=== PATIENT | female | born 1960 | race Caucasian/White ===

== ENCOUNTER → 2020-03-07 | Outpatient (CLI) | payer MEDICARE | END | disposition home or self-care (01) | LOC: RAH 07:55 | PROVIDERS: ATTEND Orthopaedic Surgery | DX: M16.0 Bilateral primary osteoarthritis of hip (principal); M87.00 Idiopathic aseptic necrosis of unspecified bone; M25.552 Pain in left hip; M25.551 Pain in right hip | CPT/HCPCS: 72195 ==

== ENCOUNTER → 2024-06-12 | Outpatient (CLI) | payer MEDICARE ==
--- NOTE | 2024-06-12 09:34 | HMCIMG ---
UPPER GI TRACT, WO KUB REASON: HEARTBURN; DIAPHRAGMATIC HERNIA W/O OBSTRUCTION OR GANGRENE. COMPARISON: None TECHNIQUE: Biphasic upper GI series study was performed. FINDINGS: There is no obstruction to the antegrade passage of barium from mouth through jejunum. The study is somewhat limited due to patient's underlying condition. A normal esophageal stripping wave is seen. There is no evidence of hiatal hernia. Mild gastroesophageal reflux is seen to level of the distal esophagus. Stomach is well distended without ulceration or mass lesion. Duodenal bulb and sweep are unremarkable. Post cholecystectomy changes are seen. Postop changes are seen of cervical spine. IMPRESSION: No obstruction. Mild gastroesophageal reflux to the level of distal esophagus.
== END | disposition home or self-care (01) ==
LOC: RAH 08:26
PROVIDERS: ATTEND Internal Medicine Gastroenterology
DX: K21.9 Gastro-esophageal reflux disease without esophagitis (principal); K44.9 Diaphragmatic hernia without obstruction or gangrene; R12 Heartburn
CPT/HCPCS: 74240